=== PATIENT | female | born 1945 | race American Indian/Alaskan Native ===

== ENCOUNTER 2019-12-30 15:00 | Emergency (ER) | payer MEDICARE, OTHER ==
[2019-12-30 15:18] VITALS: BP 152/82
--- NOTE | 2019-12-30 15:43 | XRay Report ---
LEFT FINGERS 3 VIEWS INDICATION / CLINICAL INFORMATION: left 3RD finger crushed COMPARISON: None available. FINDINGS: BONES / JOINT(S): No acute fracture or subluxation. No significant arthritis. SOFT TISSUES: No significant abnormality. ADDITIONAL FINDINGS: None. Signer Name: Allen Horvath MD Signed: 12/30/2019 3:38 PM Workstation Name: [id number]
--- NOTE | 2019-12-30 15:59 | Emergency Department Report ---
Upper Extremity - HPI Chief Complaint: Extremity Injury, Upper Stated Complaint: LFT MIDDLE FINGER SMASHED Time Seen by Provider: 12/30/19 15:22 Upper Extremity: Left Middle Finger Occurred When: Today Mechanism: Crush (Accidentally closing the patient's door) Symptoms: Yes Pain with Movement, Yes Swelling, No Deformity, No Numbness, No Weakness, No Laceration or Abrasion ED Review of Systems ROS: Stated complaint: LFT MIDDLE FINGER SMASHED Other details as noted in HPI Comment: All other systems reviewed and negative ED Past Medical Hx - Past Medical History Additional medical history: CHRONIC BACK - Surgical History Additional Surgical History: COLON - Social History Smoking Status: Never Smoker Substance Use Type: None Upper Extremity Exam - Exam General: Vital signs noted. No distress. Alert and acting appropriately. Shoulder Exam: Yes Normal Range of Motion in Shoulder, No Shoulder Tenderness, No Clavicle Tenderness, No Shoulder Deformity, No AC Joint Tenderness Arm Exam: No Arm/Humerus Tenderness, No Arm Deformity Elbow: No Elbow Tenderness, No Normal Range of Motion in Elbow, No Elbow Deformity Forearm: No Forearm Tenderness, No Forearm Deformity, No Pain with Pronation, No Pain with Supination Wrist: Yes Normal ROM in Wrist, No Wrist Tenderness, No Wrist Deformity, No Snuffbox Tenderness, No Pain with Axial Thumb Compression Hand: Yes Digit Tenderness (To the proximal to phalangeal joint of the third digit with mild swelling.. Pulses 2+ extremities are warm ) CMS Exam: Yes Normal Distal Pulses, Yes Normal Distal Sensation, No Broken Skin ED Course Vital Signs 12/30/19 15:16 Temperature 98.3 F Pulse Rate 72 Respiratory 18 Rate Blood Pressure 152/82 O2 Sat by Pulse 95 Oximetry ED Medical Decision Making - Radiology Data Radiology results: report reviewed X-ray of the finger shows no acute fracture or subluxation. No significant arthritis. Soft tissue noted no significant abnormality Critical care attestation.: If time is entered above; I have spent that time in minutes in the direct care of this critically ill patient, excluding procedure time. ED Disposition Clinical Impression: Crush injury to finger Disposition: DC-01 TO HOME OR SELFCARE Is pt being admited?: No Does the pt Need Aspirin: No Condition: Stable Instructions: Splint Care (ED), Contusion in Adults (ED), Ice Pack Application (ED) Additional Instructions: Please refrain from vigorous utilization of the left hand for the next 2 to 3 days continue to ice it as per the icing guidelines. You can use Tylenol and Motrin as needed for pain. Referrals: PRIMARY CARE,MD [Primary Care Provider] - 3-5 Days
== END 2019-12-30 16:25 | disposition home or self-care (01) ==
LOC: ED 15:00
DX: S60.943A Unspecified superficial injury of left middle finger, initial encounter (principal); G89.29 Other chronic pain; Z90.49 Acquired absence of other specified parts of digestive tract; Z88.2 Allergy status to sulfonamides; W23.0XXA Caught, crushed, jammed, or pinched between moving objects, initial encounter; Y93.89 Activity, other specified; Y92.89 Other specified places as the place of occurrence of the external cause; Y99.8 Other external cause status
CPT/HCPCS: 99283